=== PATIENT | male | born 1965 | race Caucasian/White ===

== ENCOUNTER 2020-11-27 15:41 | Emergency (ER) | payer SELFPAY ==
[~2020-11-27] VITALS: Ht 177.8 cm; Wt 81.6 kg
[~2020-11-27 15:41] MED LIST: FENOFIBRATE160 MG PO; FISH OIL 1,0001 EAC2 NG; HYDROMORPHONE HC4 MG PO; LIPITOR10 MG PO; OMEPRAZOLE20 MG PO; PROAIR HFA8.5 GM INH; TAMSULOSIN HCL0.4 MG PO
== END 2020-11-27 18:25 | disposition home or self-care (01) ==
LOC: ED 15:41
DX: U07.1 COVID-19 (principal); J12.82 Pneumonia due to coronavirus disease 2019; K21.9 Gastro-esophageal reflux disease without esophagitis; Z79.899 Other long term (current) drug therapy
CPT/HCPCS: 71045; 80053; 83605; 85025; 99283-25; C9803; U0003